=== PATIENT | female | born 1950 | race Caucasian/White ===

== ENCOUNTER 2021-07-13 10:38 | Emergency (ER) | payer OTHER, MEDICAID ==
[~2021-07-13] VITALS: Ht 172.7 cm; Wt 58.1 kg
[2021-07-13] MEDS ORDERED: NEURONTIN 300M300 M2 PO (10:56)
[2021-07-13] MEDS ORDERED: KLOR-CON 10 ER10 MEQ PO (10:56)
[2021-07-13 11:40] LABS: CALCIUM 8.9 mg/dL (8.5-10.1); CREATININE 1.2 mg/dL (0.6-1.3); POTASSIUM 4.3 mmol/L (3.5-5.1)
[2021-07-13 11:49] LABS: ABSOLUTE BASOPHILS 0.1 thou/uL (0.0-0.2); ABSOLUTE LYMPHOCYTES 0.8 thou/uL (0.8-5.3); ABSOLUTE MONOCYTES 0.5 thou/uL (0.0-1.2); ABSOLUTE NEUTROPHILS 8.4 thou/uL (1.6-8.1); BASOPHILS 0.6 %; HEMATOCRIT 36.7 % (37.0-47.0); HEMOGLOBIN 12.4 gm/dL (12.0-15.0); LYMPHOCYTES 8.5 %; MCH 33.8 pg (26.0-34.0); MCHC 33.8 g/dL (28.0-37.0); MONOCYTES 5.5 %; MPV 7.9 fl. (7.2-11.1); NUCLEATED RBCS 0 /100WBC; PLATELET COUNT* 307 thou/uL (150-400); POLYS 85.4 %; RBC 3.67 mil/uL (4.20-5.00); RDW-CV 12.9 % (10.5-14.5); WBC 9.8 thou/uL (4.0-11.0)
[2021-07-13] MEDS ORDERED: ONDANSETRON ODT4 MG PO (12:45)
[2021-07-13 13:30] VITALS: BP 134/75
[2021-07-13 14:27] LABS: URINE BILIRUBIN NEGATIVE (Negative); URINE BLOOD 3+ (Negative); URINE CLARITY CLEAR; URINE COLOR YELLOW; URINE GLUCOSE-RANDOM NEGATIVE (Negative); URINE KETONES NEGATIVE (Negative); URINE LEUKOCYTES-REFLEX NEGATIVE (Negative); URINE NITRITE-REFLEX NEGATIVE (Negative); URINE PROTEIN NEGATIVE (Negative); URINE SPECIFIC GRAVITY 1.015 (1.005-1.030); URINE UROBILINOGEN 0.2 E.U./dl (0.2-1.0)
[2021-07-13 15:01] LABS: HYALINE CASTS 4-10 Moderate /LPF (None Seen); MUCUS None Seen strn/LPF (None Seen); SQUAMOUS >10 Many /LPF (0-3)
[2021-07-13 15:02] LABS: BACTERIA-REFLEX 1-9 Few /HPF (None Seen); URINE WBC-REFLEX None Seen /HPF (0-5)
[2021-07-13 15:04] LABS: CRYSTALS None Seen /LPF (None Seen); URINE RBC 0-2 Rare /HPF (0-2)
== END 2021-07-13 13:30 | disposition home or self-care (01) ==
LOC: M.ERS 10:38
PROVIDERS: Physician Assistant
DX: E86.0 Dehydration (principal); G62.9 Polyneuropathy, unspecified; F17.210 Nicotine dependence, cigarettes, uncomplicated; Z90.710 Acquired absence of both cervix and uterus